=== PATIENT | male | born 1970 | race Caucasian/White ===

== ENCOUNTER 2018-06-05 22:46 | Emergency (ER) | payer SELFPAY ==
[~2018-06-05] VITALS: Ht 172.7 cm; Wt 90.0 kg
[~2018-06-05 22:46] MED LIST: CALCIUM CHLORIDE 1GM/10ML SYR IV ONE; EPINEPHRINE 0.1MG/ML (1:10,000) 10ML SYR ONE; SODIUM BICARBONATE 7.5% 0.9 MEQ/ML 50ML SYR IV ONE
[2018-06-05 22:50] VITALS: BP 0/0
== END 2018-06-06 00:36 | disposition expired ==
LOC: ER 22:46
DX: I46.9 Cardiac arrest, cause unspecified (principal); E66.9 Obesity, unspecified; Z68.30 Body mass index [BMI] 30.0-30.9, adult
CPT/HCPCS: 82962; 92950; 99285; J3490